=== PATIENT | female | born 1950 | race Caucasian/White ===

== ENCOUNTER 2022-02-07 10:41 | Inpatient (IN) ==
[2022-02-07] MEDS ORDERED: NS 500 ML IV 500 ML IV ONE (14:20)
[2022-02-07 14:55] LABS: BASOPHILS # (AUTO) 0.1 X10^3/uL (0.0-0.1); BASOPHILS % (AUTO) 0.9 % (0.2-1.0); EOSINOPHILS # (AUTO) 0.2 x10^3/uL (0.0-0.2); EOSINOPHILS % (AUTO) 2.6 % (0.9-2.9); HEMATOCRIT 36.1 % (36.0-47.0); LYMPHOCYTES % (AUTO) 28.1 % (21.0-51.0); MEAN CORPUSCULAR HEMOGLOBIN 26.5 pg (27.0-34.0); MEAN CORPUSCULAR HGB CONC 33.1 g/dL (33.0-35.0); MEAN CORPUSCULAR VOLUME 79.9 fL (80.0-100.0); MEAN PLATELET VOLUME 8.2 fL (7.4-11.0); MONOCYTES # (AUTO) 0.7 x10^3/uL (0.3-0.8); MONOCYTES % (AUTO) 9.8 % (0.0-13.0); NEUTROPHILS # (AUTO) 4.1 x10^3/uL (2.2-4.8); NEUTROPHILS % (AUTO) 58.6 % (42.0-75.0); RED BLOOD COUNT 4.52 X10^6/uL (3.5-5.4); RED CELL DISTRIBUTION WIDTH 16.9 % (11.6-16.5)
[2022-02-07 15:15] LABS: ALANINE AMINOTRANSFERASE 13 Units/L (12-78); ALBUMIN 3.4 g/dL (3.4-5.0); ALKALINE PHOSPHATASE 89 Units/L (46-116); ASPARTATE AMINO TRANSFERASE 21 Units/L (15-37); BLOOD UREA NITROGEN 16 mg/dL (7-18); CALCIUM 9.3 mg/dL (8.5-10.1); CARBON DIOXIDE 34.8 mmol/L (21-32); CHLORIDE 94 mmol/L (98-107); CKMB % 4.4 % (<4); CREATINE KINASE 23 Units/L (26-192); CREATINE KINASE MB < 1.0 ng/mL (0-4.0); SODIUM 133 mmol/L (136-145); TOTAL PROTEIN 6.8 g/dL (6.4-8.2); eGFR NON BLACK RACES 43 (>60)
[2022-02-07] MEDS ORDERED: POTASSIUM CHL 40 MEQ/NS 0.45% 500 ML IV PRN (15:28)
[2022-02-07] MEDS ORDERED: POTASSIUM CHL 60 MEQ/NS 0.45% 500 ML IV PRN (15:28)
[2022-02-07] MEDS ORDERED: K-RIDER 10 MEQ/NS 100 ML 10 MEQ/100 ML BAG IV PRN (15:28)
[2022-02-07] MEDS ORDERED: MICRO K EXTEN CAP 10 MEQ PO PRN (15:28)
[2022-02-07] MEDS ORDERED: POTASSIUM CHLORIDE LIQ 20 MEQ UDC PO PRN (15:28)
[2022-02-07] MEDS ORDERED: KLOR-CON PO PRN (15:28)
[2022-02-07] MEDS: K-DUR TAB 20 MEQ PO PRN (15:46)
[2022-02-07] MEDS: NS 1,000 ML IV 1,000 ML IV SCH ×2 (15:46→21:30)
[2022-02-07] MEDS ORDERED: ULTRAM PO PRN (17:41)
[2022-02-07] MEDS ORDERED: XANAX PO PRN (17:41)
[2022-02-07] MEDS: XARELTO PO SCH ×2 (18:11→18:21)
[2022-02-07] MEDS: TRICOR TAB 145 MG PO SCH ×2 (18:11→18:22)
[2022-02-07 18:52] LABS: CKMB % 3.2 % (<4); CREATINE KINASE 31 Units/L (26-192); CREATINE KINASE MB < 1.0 ng/mL (0-4.0)
[2022-02-07] MEDS: FLEXERIL TAB 10 MG PO SCH (21:07)
[2022-02-07] MEDS: WELCHOL PO SCH (21:07)
[2022-02-07] MEDS: NEURONTIN CAP 300 MG PO SCH (21:07)
[2022-02-07 22:23] LABS: CKMB % 4.4 % (<4); CREATINE KINASE 23 Units/L (26-192); CREATINE KINASE MB < 1.0 ng/mL (0-4.0)
[2022-02-08] MEDS: FLEXERIL TAB 10 MG PO SCH ×3 (05:03→21:00)
[2022-02-08] MEDS: WELCHOL PO SCH ×3 (05:03→21:00)
[2022-02-08] MEDS: NS 1,000 ML IV 1,000 ML IV SCH ×2 (05:03→19:09)
[2022-02-08 06:15] LABS: BASOPHILS % (AUTO) 0.8 % (0.2-1.0); EOSINOPHILS # (AUTO) 0.3 x10^3/uL (0.0-0.2); EOSINOPHILS % (AUTO) 4.5 % (0.9-2.9); HEMATOCRIT 31.4 % (36.0-47.0); HEMOGLOBIN 10.6 g/dL (12.0-16.0); LYMPHOCYTES # (AUTO) 2.1 X10^3/uL (1.3-2.9); LYMPHOCYTES % (AUTO) 35.7 % (21.0-51.0); MEAN CORPUSCULAR HEMOGLOBIN 26.9 pg (27.0-34.0); MEAN CORPUSCULAR HGB CONC 33.8 g/dL (33.0-35.0); MEAN CORPUSCULAR VOLUME 79.5 fL (80.0-100.0); MEAN PLATELET VOLUME 7.9 fL (7.4-11.0); MONOCYTES # (AUTO) 0.7 x10^3/uL (0.3-0.8); MONOCYTES % (AUTO) 12.1 % (0.0-13.0); NEUTROPHILS # (AUTO) 2.8 x10^3/uL (2.2-4.8); NEUTROPHILS % (AUTO) 46.9 % (42.0-75.0); RED BLOOD COUNT 3.95 X10^6/uL (3.5-5.4); RED CELL DISTRIBUTION WIDTH 16.8 % (11.6-16.5); WHITE BLOOD COUNT 5.9 X10^3/uL (3.6-10.0)
[2022-02-08 06:24] LABS: ALANINE AMINOTRANSFERASE 14 Units/L (12-78); ALBUMIN 2.7 g/dL (3.4-5.0); ALKALINE PHOSPHATASE 77 Units/L (46-116); ASPARTATE AMINO TRANSFERASE 17 Units/L (15-37); BLOOD UREA NITROGEN 11 mg/dL (7-18); CALCIUM 8.7 mg/dL (8.5-10.1); CARBON DIOXIDE 29.5 mmol/L (21-32); CHLORIDE 103 mmol/L (98-107); COR CA(FOR HYPOALB) 9.7 mg/dL (8.5-10.1); CREATININE 0.94 mg/dL (0.55-1.02); SODIUM 138 mmol/L (136-145); TOTAL PROTEIN 5.7 g/dL (6.4-8.2); eGFR NON BLACK RACES > 60 (>60)
--- NOTE | 2022-02-08 08:20 | CT ---
HISTORYDIZZINESS; NEAR SYNCOPESTUDYCT brain without IV contrastCOMPARISONNoneTECHNIQUEMultiple axial images of the brain were obtained without IV contrast. Dose reduction techniques including Automated Exposure Control (AEC) and adjustment of mA and kV were utilized.FINDINGSSlight mucosal thickening is seen in the left maxillary sinus. No air-fluid levels are seen in the paranasal sinuses or mastoid air cells. No calvarial fracture is seen.No acute intracranial hemorrhage or mass effect is seen. Mild diffuse volume loss is seen in the brain with compensatory enlargement of the ventricular system. No evidence of acute CVA. Probable mild chronic small vessel ischemic changes in the periventricular white matter, basal ganglia, and gracia.IMPRESSIONProbable mild chronic small vessel ischemic changes without evidence of acute intracranial abnormality.Electronically signed by: Reynaldo Garcia (Feb 08, 2022 08:18:33)
[2022-02-08] MEDS: MICRO K EXTEN CAP 10 MEQ PO SCH (08:29)
[2022-02-08] MEDS: ESTRACE PO SCH (08:29)
[2022-02-08] MEDS: QUESTRAN POWDER FOR ORAL SUSP PO SCH (08:29)
[2022-02-08] MEDS: PROTONIX TAB 40 MG PO SCH (08:30)
[2022-02-08] MEDS: CARDIZEM CD 120 MG 24-HR PO SCH (08:30)
[2022-02-08] MEDS: TRICOR TAB 145 MG PO SCH (08:30)
[2022-02-08] MEDS: K-DUR TAB 20 MEQ PO PRN (08:30)
[2022-02-08] MEDS: TORADOL 30 MG VIAL IVP SCH ×2 (12:00→20:46)
[2022-02-08] MEDS: XARELTO PO SCH (18:00)
--- NOTE | 2022-02-08 19:06 | DR.UPDATE ---
H&P Update History and Physical Update: History and Physical reviewed and patient examined. Changes noted: Yes with the following: WAS ADMITTED FUE TO HYPOKALEMIA, ACUTE RENAL FAILURE, DIZZINESS, NEAR SYNCOPE, AND LOW BLOOD PRESSURE. SYMPTOMS STARTED ABOUT A WEEK AGO AND HAVE BEEN PERSISTENT. SYMPTOM IS WORSE WHEN CHANGING POSITIONS. SHE IS CURRENTLY ON OLMASARTAN FOR BLOOD PRESSURE. WE INSTRUCTED PATIENT TO HOLD OLMASARTAN UNTIL INSTRUCTED TO RESUME. HER BLOOD PRESSURE IN THE OFFICE WAS 81/53. SHE WAS ALSO INSTRUCTED TO HOLD LASIX DUE TO LOW GFR. SHE ALSO COMPLAINED OF PAIN THAT BEGINS IN THE LEFT HIP AND MOVES DOWN THE LEG. THIS HAS BEEN GOING ON FOR THE PAST 3-4 WEEKS. SHE DOES ADMIT TO HAVING SHINGLES APPROXIMATELY FOUR WEEKS AGO. WE ADMITTED PATIENT TO THE HOSPITAL FOR FURTHER EVALUATION AND TREATMENT. ON ARRIVAL TO THE HOSPITAL, VITALS WERE: 98.7-61-16-98%-136/65. LABS WERE OBTAINED. WBC 7.0, RBC 4.52, HGB 12.0, HCT 36.1, PLT COUNT 278, SODIUM 133, POTASSIUM 2.8, CHLORIDE 94, CARBON DIOXIDE 34.8, BUN 16, CREATININE 1.30, GFR 43, GLUCOSE 108, CALCIUM 9.3, AST 21, ALT 13, ALK PHOS 89, CREATINE KINASE 23, TOTAL PRTOEIN 6.8, ALBUMIN 3.4. COVID, INFLUENZA, AND RSV NEGATIVE. EKG REVEALED: SINUS RHYTHM WITH 1ST DEGREE AV BLOCK. HR [address] WAS OBTAINED AND REVEALED: Probable mild chronic small vessel ischemic changes without evidence of acute intracranial abnormality. AN ECHO WAS OBTAINED AND REVEALED AN EJECTION FRACTION OF 67%, GRADE II PSEUDONORMAL DIASTOLIC DYSFUNCTION, SCLEROSIS OF THE AORTIC VALVE. MILD PULMONARY HTN. SHE WAS STARTED ON NORMAL SALINE AT 75 ML/HR, THE POTASSIUM AND MAGNESIUM PROTOCOLS, TORADOL 30MG IV Q8H, AND HER HOME MEDICATIONS OF XANAX, QUESTRAN, WELCHOL, FLEXERIL, CARDIZEM CD, ESTRACE, TRICOR, NEURONTIN, PROTONIX, XARELTO, AND ULTRAM WERE RESUMED. OTHERWISE, WE PLAN TO FOLLOW-UP WITH AM LABS AND CONTINUE TO MONITOR. TIME SPENT ON CLINICAL ASSESSMENT, REVIEWING LABS AND IMAGING, DECISION MAKING, AND DOCUMENTATION GREATER THAN 75 MINUTES. H&P Reviewed: Yes Patient was examined?: Yes
[2022-02-08] MEDS: NEURONTIN CAP 300 MG PO SCH (20:45)
[2022-02-09] MEDS: TORADOL 30 MG VIAL IVP SCH ×3 (02:41→19:55)
[2022-02-09] MEDS: WELCHOL PO SCH ×4 (05:02→21:34)
[2022-02-09] MEDS: FLEXERIL TAB 10 MG PO SCH ×3 (05:02→21:05)
[2022-02-09 06:19] LABS: BASOPHILS % (AUTO) 0.8 % (0.2-1.0); EOSINOPHILS # (AUTO) 0.3 x10^3/uL (0.0-0.2); EOSINOPHILS % (AUTO) 4.7 % (0.9-2.9); HEMATOCRIT 31.5 % (36.0-47.0); HEMOGLOBIN 10.4 g/dL (12.0-16.0); LYMPHOCYTES # (AUTO) 2.1 X10^3/uL (1.3-2.9); LYMPHOCYTES % (AUTO) 35.7 % (21.0-51.0); MEAN CORPUSCULAR HEMOGLOBIN 26.6 pg (27.0-34.0); MEAN CORPUSCULAR HGB CONC 33.1 g/dL (33.0-35.0); MEAN CORPUSCULAR VOLUME 80.4 fL (80.0-100.0); MEAN PLATELET VOLUME 8.2 fL (7.4-11.0); MONOCYTES # (AUTO) 0.6 x10^3/uL (0.3-0.8); MONOCYTES % (AUTO) 10.5 % (0.0-13.0); NEUTROPHILS # (AUTO) 2.8 x10^3/uL (2.2-4.8); NEUTROPHILS % (AUTO) 48.3 % (42.0-75.0); RED BLOOD COUNT 3.92 X10^6/uL (3.5-5.4); RED CELL DISTRIBUTION WIDTH 16.8 % (11.6-16.5); WHITE BLOOD COUNT 5.9 X10^3/uL (3.6-10.0)
[2022-02-09 06:30] LABS: ALANINE AMINOTRANSFERASE 15 Units/L (12-78); ALBUMIN 2.7 g/dL (3.4-5.0); ALKALINE PHOSPHATASE 83 Units/L (46-116); ASPARTATE AMINO TRANSFERASE 16 Units/L (15-37); BLOOD UREA NITROGEN 12 mg/dL (7-18); CALCIUM 8.7 mg/dL (8.5-10.1); CARBON DIOXIDE 28.1 mmol/L (21-32); CHLORIDE 107 mmol/L (98-107); COR CA(FOR HYPOALB) 9.7 mg/dL (8.5-10.1); CREATININE 0.81 mg/dL (0.55-1.02); SODIUM 139 mmol/L (136-145); TOTAL PROTEIN 5.8 g/dL (6.4-8.2); eGFR NON BLACK RACES > 60 (>60)
[2022-02-09] MEDS: NS 1,000 ML IV 1,000 ML IV SCH ×2 (08:13→22:19)
[2022-02-09] MEDS: CARDIZEM CD 120 MG 24-HR PO SCH (08:13)
[2022-02-09] MEDS: QUESTRAN POWDER FOR ORAL SUSP PO SCH (08:13)
[2022-02-09] MEDS: PROTONIX TAB 40 MG PO SCH (08:15)
[2022-02-09] MEDS: ESTRACE PO SCH (08:15)
[2022-02-09] MEDS: TRICOR TAB 145 MG PO SCH (08:15)
[2022-02-09] MEDS: MICRO K EXTEN CAP 10 MEQ PO SCH (08:15)
[2022-02-09] MEDS: BENICAR TAB 40 MG PO SCH (11:30)
[2022-02-09] MEDS: XARELTO PO SCH (16:46)
[2022-02-09] MEDS: K-DUR TAB 20 MEQ PO PRN (18:27)
[2022-02-09] MEDS: NEURONTIN CAP 300 MG PO SCH (21:05)
[2022-02-10] MEDS: TORADOL 30 MG VIAL IVP SCH (03:00)
[2022-02-10] MEDS: WELCHOL PO SCH (05:26)
[2022-02-10] MEDS: FLEXERIL TAB 10 MG PO SCH (05:26)
[2022-02-10 06:23] LABS: BASOPHILS # (AUTO) 0.1 X10^3/uL (0.0-0.1); BASOPHILS % (AUTO) 0.9 % (0.2-1.0); EOSINOPHILS # (AUTO) 0.4 x10^3/uL (0.0-0.2); EOSINOPHILS % (AUTO) 5.2 % (0.9-2.9); HEMATOCRIT 32.3 % (36.0-47.0); HEMOGLOBIN 10.7 g/dL (12.0-16.0); LYMPHOCYTES # (AUTO) 2.4 X10^3/uL (1.3-2.9); LYMPHOCYTES % (AUTO) 33.7 % (21.0-51.0); MEAN CORPUSCULAR HEMOGLOBIN 26.6 pg (27.0-34.0); MEAN CORPUSCULAR HGB CONC 33.1 g/dL (33.0-35.0); MEAN CORPUSCULAR VOLUME 80.2 fL (80.0-100.0); MEAN PLATELET VOLUME 8.1 fL (7.4-11.0); MONOCYTES # (AUTO) 0.8 x10^3/uL (0.3-0.8); MONOCYTES % (AUTO) 10.7 % (0.0-13.0); NEUTROPHILS # (AUTO) 3.5 x10^3/uL (2.2-4.8); NEUTROPHILS % (AUTO) 49.5 % (42.0-75.0); RED BLOOD COUNT 4.03 X10^6/uL (3.5-5.4); RED CELL DISTRIBUTION WIDTH 17.3 % (11.6-16.5)
[2022-02-10 06:30] LABS: ALANINE AMINOTRANSFERASE 10 Units/L (12-78); ALBUMIN 2.9 g/dL (3.4-5.0); ALKALINE PHOSPHATASE 94 Units/L (46-116); ASPARTATE AMINO TRANSFERASE 19 Units/L (15-37); BLOOD UREA NITROGEN 12 mg/dL (7-18); CALCIUM 8.9 mg/dL (8.5-10.1); CARBON DIOXIDE 27.1 mmol/L (21-32); CHLORIDE 106 mmol/L (98-107); COR CA(FOR HYPOALB) 9.8 mg/dL (8.5-10.1); CREATININE 0.77 mg/dL (0.55-1.02); SODIUM 140 mmol/L (136-145); TOTAL PROTEIN 6.1 g/dL (6.4-8.2); eGFR NON BLACK RACES > 60 (>60)
[2022-02-10] MEDS: BENICAR TAB 40 MG PO SCH (08:51)
[2022-02-10] MEDS: PROTONIX TAB 40 MG PO SCH (08:53)
[2022-02-10] MEDS: ESTRACE PO SCH (08:53)
[2022-02-10] MEDS: TRICOR TAB 145 MG PO SCH (08:53)
[2022-02-10] MEDS: CARDIZEM CD 120 MG 24-HR PO SCH (08:53)
[2022-02-10] MEDS: MICRO K EXTEN CAP 10 MEQ PO SCH (08:54)
[2022-02-10] MEDS: QUESTRAN POWDER FOR ORAL SUSP PO SCH (08:54)
[2022-02-10 11:08] VITALS: BP 162/72
== END 2022-02-10 11:30 | disposition home health service (06) | DRG 684 ==
LOC: MED/SURG → OBSVTOIN 12:35
PROVIDERS: ADMIT Internal Medicine; ATTEND Internal Medicine
DX: F41.8 Other specified anxiety disorders; M25.552 Pain in left hip; I48.91 Unspecified atrial fibrillation; Z20.822 Contact with and (suspected) exposure to COVID-19; Z86.69 Personal history of other diseases of the nervous system and sense organs; N17.8 Other acute kidney failure; N18.9 Chronic kidney disease, unspecified; R55 Syncope and collapse; E78.2 Mixed hyperlipidemia; E87.6 Hypokalemia; R26.89 Other abnormalities of gait and mobility; K21.9 Gastro-esophageal reflux disease without esophagitis; I95.89 Other hypotension; R42 Dizziness and giddiness; M19.90 Unspecified osteoarthritis, unspecified site; I27.20 Pulmonary hypertension, unspecified